=== PATIENT | female | born 1990 | race Caucasian/White ===

== ENCOUNTER 2018-03-08 11:38 | Emergency (ER) | payer OTHER ==
[~2018-03-08] VITALS: Ht 157.5 cm; Wt 58.1 kg
[~2018-03-08 11:38] MED LIST: IBUP-974 PO
[2018-03-08 11:57] VITALS: BP 109/76
--- NOTE | 2018-03-08 12:03 | NUR ---
Patient ambulated to bed 6. RN evaluating patient at bedside.
--- NOTE | 2018-03-08 12:08 | NUR ---
PT. CAME INTO THE ED DUE TO MID ABD PAIN X 3 DAYS. PT. STATES " I HAVE BEEN HAVING THIS CRAMPING PAIN THAT IS ON AND OFF AND STARTS IN THE MIDDLE OF MY STOMACH TO MY R BACK SIDE". PT. DENIES ANY BURNING UPON URINATION. PT. DENIES VOMITING AND DIAHRRHEA BUT DOES COMPLAIN OF NAUSEA. 01/19 MID ABD CRAMPING PAIN THAT RADIATES TO R LOWER BACK. DENIES ANY FEVERS AT THIS TIME. ER MD NOTIFIED. WILL CONTINUE TO MONITOR. SAFETY PRECAUTIONS INITIATED.
--- NOTE | 2018-03-08 12:11 | NUR ---
Dr. Guevara evaluating patient at bedside.
[2018-03-08] MEDS ORDERED: KETOROLAC 60 MG/2 ML VIAL IM ONE (12:15)
[2018-03-08 12:27] LABS: APPEARANCE,URINE CLEAR (CLEAR); BILIRUBIN,URINE NEGATIVE (NEGATIVE); BLOOD, URINE 1+ (NEGATIVE); COLOR,URINE YELLOW (YELLOW); LEUKOCYTE ESTERASE ,URINE NEGATIVE (NEGATIVE); NITRITE, URINE NEGATIVE (NEGATIVE); PH,URINE 5.5 (5.0-9.0); UGLUCOSE NEGATIVE (NEGATIVE)
[2018-03-08 12:30] LABS: RBC,URINE 0-5 (RARE) /HPF (0-5); WBC,URINE 0-5 (RARE) /HPF (0-5)
--- NOTE | 2018-03-08 12:32 | NUR ---
US exam in progress at bedside.
--- NOTE | 2018-03-08 13:10 | NUR ---
PT. RESTING COMFORTABLY IN BED, RR EVEN AND UNLABORED. BED IN LOWEST POSITION. VSS. WILL CONTINUE TO MONITOR.
[2018-03-08 13:41] VITALS: BP 110/78
== END 2018-03-08 13:42 | disposition home or self-care (01) ==
LOC: MED 11:38
DX: N83.202 Unspecified ovarian cyst, left side (principal); N83.201 Unspecified ovarian cyst, right side
CPT/HCPCS: 76830; 81001; 81025; 93976; 96372; 99285; J1885; Q0092